=== PATIENT | male | born 1990 | race American Indian/Alaskan Native ===

== ENCOUNTER 2022-05-27 08:23 | Emergency (ER) | payer SELFPAY ==
[2022-05-27 08:41] VITALS: BP 117/69
[2022-05-27] MEDS ORDERED: LIDOCAINE-MPF (1%) 10 MG/1 ML VIAL 5 ML INFILTRATI ONE (10:29)
[2022-05-27] MEDS ORDERED: AZITHROMYCIN 250 MG TAB PO ONE (10:29)
[2022-05-27 11:09] LABS: Bilirubin,Urine NEG (Negative); Blood,Urine NEG (Negative); Color,Urine Yellow (Yellow); Protein,Urine <15 mg/dL mg/dL (Negative); Urobilinogen,Urine < 2.0 mg/dL (<2.0)
[2022-05-27 11:25] LABS: Mucus,Urine 1+ /HPF
[2022-05-27 11:30] LABS: WBC,Urine > 182.0 /HPF (0.0-6.0)
--- NOTE | 2022-05-27 11:53 | Emergency Department Report ---
ED Male HPI - General Chief complaint: Urogenital-Male Stated complaint: BURING/ITCHING WHEN URINE Time Seen by Provider: 05/27/22 09:50 Source: patient Mode of arrival: Ambulatory Limitations: No Limitations - History of Present Illness Initial comments: 32 yo black male with no pmh presents to ed for evaluation of few day history of penile discharge. He denies abdominal pain, fever but has had some dysuria. He admits to unprotected sex but with same partner. MD Complaint: penile discharge, dysuria -: Gradual, days(s) (2) Location: penis Radiation: none Severity: mild Severity scale (0 -10): 2 Consistency: intermittent Worsens with: urination discharge, dysuria. denies: swelling, mass, rash, urinary retention, blood in urine, fever, nausea/vomiting, incontinence - Related Data Sexually active: Yes Home Medications Medication Instructions Recorded Confirmed Last Taken No Known Home Medications [No 05/27/22 05/27/22 Unknown Reported Home Medications] Allergies Allergy/AdvReac Type Severity Reaction Status Date / Time No Known Allergies Allergy Verified 05/27/22 09:52 ED Review of Systems ROS: Stated complaint: BURING/ITCHING WHEN URINE Other details as noted in HPI Comment: All other systems reviewed and negative Constitutional: denies: chills, fever, weakness Eyes: denies: vision change ENT: denies: congestion Respiratory: denies: shortness of breath Cardiovascular: denies: chest pain, palpitations Gastrointestinal: denies: abdominal pain, nausea, vomiting Genitourinary: dysuria, discharge. denies: urgency, frequency, hematuria, testicular pain, testicular mass Musculoskeletal: denies: back pain Neurological: denies: headache, weakness ED Past Medical Hx - Social History Smoking Status: Never Smoker Substance Use Type: None - Medications Home Medications: Home Medications Medication Instructions Recorded Confirmed Last Taken Type No Known Home Medications [No 05/27/22 05/27/22 Unknown History Reported Home Medications] ED Physical Exam - General Limitations: No Limitations General appearance: alert, in no apparent distress - Head Head exam: Present: atraumatic, normocephalic - Eye Eye exam: Present: normal appearance. Absent: conjunctival injection, periorbital swelling, periorbital tenderness - Neck Neck exam: Present: normal inspection - Respiratory Respiratory exam: Absent: respiratory distress - Cardiovascular Cardiovascular Exam: Present: regular rate - GI/Abdominal GI/Abdominal exam: Present: soft. Absent: distended, tenderness - Extremities Exam Extremities exam: Present: normal inspection - Back Exam Back exam: Present: normal inspection. Absent: CVA tenderness (R), CVA tenderness (L) - Neurological Exam Neurological exam: Present: alert, oriented X3 - Psychiatric Psychiatric exam: Present: normal affect, normal mood - Skin Skin exam: Present: warm, dry, intact, normal color ED Course Vital Signs 05/27/22 08:37 Temperature 98.1 F Pulse Rate 60 Respiratory 18 Rate Blood Pressure 117/69 [Right] O2 Sat by Pulse 100 Oximetry ED Medical Decision Making - Medical Decision Making 32 yo black male with no pmh presents to ed for evaluation of few day history of penile discharge. He denies abdominal pain, fever but has had some dysuria. He admits to unprotected sex but with same partner. Physical exam unremarkable. Patient treated empirically with rocephin 500mg IM with azithromycin 1000mg po (decline 7 day coarse of doxycycline stating that he did not think that he could remember to take it). He is advised to practice safe sex, have partner tested and follow up with pcp or health department. He verbalized understanding of and agreement with plan of care. Critical care attestation.: If time is entered above; I have spent that time in minutes in the direct care of this critically ill patient, excluding procedure time. ED Disposition Clinical Impression: Urethritis Disposition: 01 HOME / SELF CARE / HOMELESS Is pt being admited?: No Does the pt Need Aspirin: No Condition: Stable Instructions: Urethritis, Adult Additional Instructions: Follow-up with primary care provider if no improvement return to the emergency department as needed. Referrals: VANCE DALLAS MD [Primary Care Provider] - 3-5 Days Forms: STI Treatment and Prevention Time of Disposition: 11:53
== END 2022-05-27 12:33 | disposition home or self-care (01) ==
LOC: ED 08:23
DX: N34.2 Other urethritis (principal)
CPT/HCPCS: 81001; 96372; 99283; J0696; J3490